=== PATIENT | female | born 1980 | race Caucasian/White ===

== ENCOUNTER 2019-02-28 10:53 | Day surgery (SDC) | payer OTHER ==
[~2019-02-28 10:53] MED LIST: DESFLURANE 15 MIN
[2019-02-28] MEDS ORDERED: ROCURONIUM 50 MG INJ (13:24)
[2019-02-28] MEDS ORDERED: PROPOFOL 20 ML (13:24)
[2019-02-28] MEDS ORDERED: MIDAZOLAM 1 MG/ML 2 ML INJ (13:24)
[2019-02-28] MEDS ORDERED: hydrALAzine 20 MG INJ IV (13:30)
[2019-02-28] MEDS ORDERED: DIPHENHYDRAMINE 50 MG INJ IV (13:30)
[2019-02-28] MEDS ORDERED: FENTAnyl 50 MCG/ML VIAL IV ×3 (13:30)
[2019-02-28] MEDS ORDERED: METOCLOPRAMIDE 10 MG INJ IV (13:30)
[2019-02-28] MEDS ORDERED: HYDROmorphONE 1 MG/5 ML IV SYRINGE IV ×2 (13:30)
[2019-02-28] MEDS ORDERED: LABETALOL HCL 20MG INJ IV (13:30)
[2019-02-28] MEDS ORDERED: MEPERIDINE 25 MG INJ IV (13:30)
[2019-02-28] MEDS ORDERED: OXYCODONE/ACETAMINOPHEN (5/325) TAB PO ×2 (13:30)
[2019-02-28] MEDS ORDERED: CEFAZOLIN 1 GM INJ (13:36)
[2019-02-28] MEDS ORDERED: HYDROCORTISONE 100 MG INJ (13:36)
[2019-02-28] MEDS ORDERED: METOCLOPRAMIDE 10 MG INJ (13:37)
[2019-02-28] MEDS ORDERED: KETOROLAC 30 MG INJ (13:37)
[2019-02-28] MEDS ORDERED: ONDANSETRON 4 MG INJ (13:37)
[2019-02-28] MEDS ORDERED: DEXAMETHASONE 4 MG/ML 5 ML INJ (13:37)
[2019-02-28] MEDS ORDERED: hydrALAzine 20 MG INJ (13:50)
[2019-02-28] MEDS ORDERED: LABETALOL HCL 20MG INJ (13:50)
[2019-02-28] MEDS: OXYMETAZOLINE 0.05% 15 ML NAS SPRAY NASAL (13:54)
[2019-02-28] MEDS ORDERED: PHENYLephrine (100 MCG/ML) 10ML SYG (14:12)
[2019-02-28] MEDS: LIDOCAINE 1%/EPI (1:100,000) (MDV) 20 ML (14:18)
[2019-02-28] MEDS ORDERED: NEOSTIGMINE 3 MG/3 ML SYRINGE (15:45)
[2019-02-28] MEDS ORDERED: GLYCOPYRROLATE 0.4 MG INJ (15:45)
[2019-02-28] MEDS: ONDANSETRON 4 MG INJ IV (16:39)
[2019-02-28] MEDS: HYDROmorphONE 1 MG/5 ML IV SYRINGE IV (16:39)
[2019-02-28] MEDS: EPHEDrine SULFATE 50 MG/5 ML SYG IV (17:18)
== END 2019-02-28 18:51 | disposition home or self-care (01) ==
LOC: SDS 10:53
DX: J32.4 Chronic pansinusitis (principal); J32.2 Chronic ethmoidal sinusitis; J34.3 Hypertrophy of nasal turbinates; J34.2 Deviated nasal septum; E66.9 Obesity, unspecified; R94.31 Abnormal electrocardiogram [ECG] [EKG]
CPT/HCPCS: 30140; 71045; 87070; 87075; 87102; 87116; 88304; 93005

== ENCOUNTER 2019-03-01 15:01 | Emergency (ER) | payer OTHER ==
[2019-03-01 16:26] LABS: ADD UMIC YES; UR ASCORBIC ACID NEGATIVE (NEGATIVE); UR BILIRUBIN (Dip) NEGATIVE (NEGATIVE); UR BLOOD (Dip) 1+ mg/dL (NEGATIVE); UR CLARITY SLIGHTLY CLOUDY (CLEAR); UR COLOR YELLOW (YELLOW); UR GLUCOSE (Dip) NEGATIVE (NEGATIVE); UR KETONES (Dip) NEGATIVE (NEGATIVE); UR LEUKOCYTE ESTERASE (Dip) NEGATIVE Leu/ul (NEGATIVE); UR MUCUS FEW /HPF (NONE SEEN); UR NITRITE (Dip) NEGATIVE (NEGATIVE); UR RBC 3 /HPF (0-5); UR SPECIFIC GRAVITY (Dip) 1.011 (1.003-1.030); UR SQUAMOUS EPITHELIAL CELL FEW /HPF (FEW); UR TOTAL PROTEIN (Dip) NEGATIVE (NEGATIVE); UR UROBILINOGEN (Dip) NEGATIVE (NEGATIVE); UR WBC 1 /HPF (0-5)
[2019-03-01 16:38] LABS: ADD MAN DIFF? NO
[2019-03-01 16:49] LABS: WHITE BLOOD COUNT 15.5 10^3/ul (4.8-10.8)
[2019-03-01 16:49] LABS: BASOPHILS % 0.2 % (0.0-2.0); HEMATOCRIT 35.2 % (37.0-47.0); HEMOGLOBIN 11.2 g/dl (12.0-16.0); LYMPHOCYTES # 1.7 10^3/ul (0.8-2.9); LYMPHOCYTES % 10.7 % (15.0-51.0); MEAN CORPUSCULAR HEMOGLOBIN 28.4 pg (29.0-33.0); MEAN CORPUSCULAR HGB CONC 31.8 g/dl (32.0-37.0); MEAN CORPUSCULAR VOLUME 89.3 fl (82.0-101.0); MEAN PLATELET VOLUME 9.4 fl (7.4-10.4); MONOCYTE # 0.9 10^3/ul (0.3-0.9); MONOCYTES % 6.1 % (0.0-11.0); NEUTROPHIL # 12.7 10^3/ul (1.6-7.5); NEUTROPHILS % 81.9 % (39.0-77.0); PLATELET COUNT 316 10^3/UL (140-415); RED BLOOD COUNT 3.94 10^6/ul (4.20-5.40); RED CELL DISTRIBUTION WIDTH 13.7 % (11.5-14.5)
[2019-03-01 17:09] LABS: ANION GAP 9 (5-13); BLOOD UREA NITROGEN 10 mg/dl (7-20); CALCIUM 9.6 mg/dl (8.4-10.2); CARBON DIOXIDE 21 mmol/L (21-31); CHLORIDE 109 mmol/L (97-110); CREATININE 0.42 mg/dl (0.44-1.00); Estimated GFR > 60 mL/min (>60); GLUCOSE 137 mg/dl (70-220); POTASSIUM 4.1 mmol/L (3.5-5.1); SODIUM 139 mmol/L (135-144)
== END 2019-03-01 17:41 | disposition home or self-care (01) ==
LOC: FTE 15:01
DX: R51 Headache (principal); Z98.890 Other specified postprocedural states
CPT/HCPCS: 70450; 70486; 80048; 81001; 81025; 85025; 99284-25